=== PATIENT | female | born 2005 | race Caucasian/White ===

== ENCOUNTER 2023-10-21 11:58 | Emergency (ER) | payer SELFPAY ==
[~2023-10-21] VITALS: Ht 154.9 cm; Wt 60.8 kg
[2023-10-21] MEDS ORDERED: WELLBUTRIN SR100 MG PO (13:31)
[2023-10-21 14:10] VITALS: BP 133/90
== END 2023-10-21 14:10 | disposition home or self-care (01) ==
LOC: ED 11:58
DX: S41.112A Laceration without foreign body of left upper arm, initial encounter (principal); W26.0XXA Contact with knife, initial encounter
CPT/HCPCS: 99282